=== PATIENT | male | born 2000 | race Caucasian/White ===

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

== ENCOUNTER 2022-08-03 11:49 | Outpatient (REF) | payer OTHER, MEDICAID, SELFPAY ==
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
== END 2022-08-03 11:50 | disposition home or self-care (01) ==
LOC: HO.XRAY 11:49
PROVIDERS: Visit Provider Nurse Practitioner Primary Care
DX: S90.01XA Contusion of right ankle, initial encounter (principal)
CPT/HCPCS: 73610